=== PATIENT | male | born 2000 | race Caucasian/White ===

== ENCOUNTER 2019-10-29 00:04 | Emergency (ER) | payer OTHER ==
[~2019-10-29] VITALS: Ht 182.9 cm; Wt 94.5 kg
[2019-10-29 00:05] VITALS: BP 153/87
[2019-10-29] MEDS: LIDOCAINE VISCOUS 2% SOLN 15ML UDC SS ONE (00:42)
[2019-10-29] MEDS: PENICILLIN V POTASSIUM 500 MG TAB PO ONE (00:42)
[2019-10-29] MEDS ORDERED: LIDO1SOL8 PO (01:07)
[2019-10-29] MEDS ORDERED: PENI500T PO (01:07)
== END 2019-10-29 01:12 | disposition home or self-care (01) ==
LOC: M ED 00:04
DX: J02.0 Streptococcal pharyngitis (principal); Z88.1 Allergy status to other antibiotic agents; Z88.8 Allergy status to other drugs, medicaments and biological substances; F17.210 Nicotine dependence, cigarettes, uncomplicated